=== PATIENT | female | born 2000 | race Caucasian/White ===

== ENCOUNTER 2024-06-11 22:42 | Observation (INO) | payer SELFPAY ==
[2024-06-11 22:56] VITALS: BP 128/76; PULSE 94; RESP 19; RESP 99; TEMP 36.8
[2024-06-11 22:57] VITALS: BP 128/76; PULSE 94
[2024-06-11 23:11] VITALS: BMI 31.3
[2024-06-11 23:15] VITALS: TEMP 36.8
== END 2024-06-12 00:53 | disposition home or self-care (01) ==
PROVIDERS: Admitting Provider Specialist; Visit Provider Specialist
DX: O47.1 False labor at or after 37 completed weeks of gestation (principal); Z3A.39 39 weeks gestation of pregnancy
CPT/HCPCS: 59025; 59899

== ENCOUNTER 2024-06-12 04:20 | Inpatient (IN) | payer MEDICAID, SELFPAY ==
[2024-06-12] VITALS (17 sets, daily range): BP systolic 92–158; BP diastolic 57–84; PULSE 63–101; RESP 15–17; TEMP 36.5–36.8; O2SAT 96–97; BMI 31.0
[2024-06-12] MEDS: RINGERS LACTATED 1000 ML 1,000 ML 125 ML IV ×2 (04:45→07:51)
[2024-06-12] MEDS: Ampicillin Inj 2,000 MG in SODIUM CHLORIDE 0.9% (POP) 100 ML 200 MG IV (04:47)
[2024-06-12 05:07] LABS: Basophils % (Auto) 0 % (0-2.5); Eosinophils % (Auto) 0 % (0-10); Hematocrit 37.6 % (36.0-46.0); Immature Granulocytes % (Auto) 0 % (0-0); Immature Granulocytes Auto 0.08 Thou/mm3 (0.00-0.00); Lymphocytes # (Auto) 1.9 Thou/mm3 (1.0-4.8); Lymphocytes % (Auto) 10 % (10-50); Mean Corpuscular HGB Conc 34.6 g/dl (31.0-37.0); Mean Corpuscular Hemoglobin 29.3 pg (25.0-35.0); Mean Corpuscular Volume 85 fL (80-100); Monocytes # (Auto) 0.8 Thou/mm3 (0.0-0.8); Monocytes % (Auto) 4 % (0-12); Neutrophils # (Auto) 16.7 Thou/mm3 (1.8-7.7); Neutrophils % (Auto) 86 % (37-80); Nucleated Red Blood Cell % 0 /100 WBC (0); Platelet Count 391 Thou/mm3 (140-440); RDW Standard Deviation 41.5 fL (36.4-46.3); Red Blood Count 4.43 Miln/mm3 (4.00-5.20); White Blood Count 19.5 Thou/mm3 (3.6-11.0)
--- NOTE | 2024-06-12 05:29 | PD.LDHP ---
Documentation for date of: 06/12/24 OB Labor/Induct. HPI History of Present Illness Chief complaint: Labor pains : 1 Para: 0 PENNY: 06/18/24 Gestational Age (weeks): 39 Gestational Age (days): 1 History of present illness: 23-year-old 1 para 0 with intrauterine at 39 weeks and 1 day presented to labor and delivery complaining of contractions and was noted to be 5 cm on admission. She progressed rapidly to fully dilated within an hour and delivered a viable female infant without complication. Positive GBS vaginal rectal colonization. Received ampicillin before delivery. History of Present Dating criteria: LMP confirmed by 1st trimester US Labs Maternal Blood Type: O Neg Review of Systems Cardiovascular Comments: Denies any chest pain or palpitations Respiratory Comments: Denies any shortness of breath or cough Gastrointestinal Comments: Denies any constipation or diarrhea Genitourinary Comments: Denies any dysuria or flank pain Past Medical History Past Medical History OTHER HISTORY: Positive Communicable Disease (Chlamydia) Surgical History OTHER SURGICAL HX: None Social History SUBSTANCE USE: marijuana Meds Home Medications and Allergies Home Medications ?Medication ?Instructions ?Recorded ?Confirmed ?Type metronidazole 500 mg tablet 500 mg PO Q12H 06/11/24 06/11/24 History vits no.130-ferrous fum 1 tab PO QDAY 06/11/24 06/11/24 History 27 mg iron-folic acid 800 mcg tablet ( Vitamin) Allergies Allergy/AdvReac Type Severity Reaction Status Date / Time No Known Allergies Allergy Verified 06/11/24 23:11 OB Exam Physical Exam Vital signs: Pulse BP 91 126/82 06/12/24 05:03 06/12/24 05:23 Routine Respiratory Exam Comments: Clear to auscultation Routine Cardiovascular Exam Comments: Regular rate and rhythm Routine Abdominal Exam Comments: Fundus firm 2 cm above the umbilicus Routine Exam Comments: Second-degree perineal laceration and left labial laceration status post repair Routine Extremities Exam Comments: Nontender or edema Routine Skin Exam Comments: No gross rashes or lesions Routine Neurological Exam Comments: No focal deficit OB Results Labs 06/12/24 04:38 Labs: Short CBC 06/12/24 Range/Units 04:38 WBC 19.5 H (3.6-11.0) Thou/mm3 Hgb 13.0 (12.0-16.0) g/dL Hct 37.6 (36.0-46.0) % Plt Count 391 (140-440) Thou/mm3 Impressions Impression: Post day #0 status post spontaneous vaginal delivery Presumptive chorioamnionitis Ampicillin and gentamicin
[2024-06-12] MEDS: MINERAL OIL 30 ML UDC TOP (05:33)
[2024-06-12] MEDS: OXYTOCIN in NS 20 units 20 UNIT/1,000 ML BAG 125 UNIT IV (05:36)
[2024-06-12] MEDS: LIDOCAINE HCL 1% 20 ML VIAL INFL (05:37)
[2024-06-12] MEDS: BENZO/LANO/ALOE (Dermoplast) 60 GM CAN 1 SPRAY TOP (05:38)
[2024-06-12] MEDS: fentaNYL CIT INJ 50 mCg/ML AMP 2ML 100 MCG IV (05:43)
[2024-06-12 05:46] LABS: Syphilis Nonreactive (Nonreactive)
--- NOTE | 2024-06-12 06:13 | PD.LDDELS ---
Data (Bill) Data : 1 Para: 0 Term: 0 : 0 : 0 Delivery Data (Bill) Labor Data ROM Date: 06/12/24 ROM Time: 05:06 Rupture Type: SROM Amniotic Fluid: Clear Delivery Data EDC: 06/18/24 EDC calculated by:: LMP/early US confirmation Labor Onset Stage 1 Date: 06/12/24 Labor Onset Stage 1 Time: 04:00 Labor Onset Stage 2 Date: 06/12/24 Labor Onset Stage 2 Time: 05:17 Delivery Date: 06/12/24 Delivery Time: 05:34 Gestational age (weeks): 39 Gestational age (days): 1 Placenta Delivery Date: 06/12/24 Placenta Delivery Time: 05:42 Delivered by: Tyrell Livingston Delivery nurse: Maranda Lerma Other staff at delivery: 2nd Nurse Other staff at delivery: Shirlene Mays Delivery Method Delivery: Vaginal Delivery Type: Spontaneous Presentation: Vertex Position: OA Anesthesia Type Primary Anesthesia: Local Placenta Placenta Delivery: Spontaneous Placenta Sent for Examination: No Cord Sample: Cord Blood Obtained Lacerations #1: Perineal: 2nd degree Labial: left Perineal repair Sutures used for repair: 3.0 Chromic EBL Estimated blood loss (ml): 200 Umbilical Cord Umbilical Vessels: 3 Additional Procedures None Complications Complications: None Data (Bill) Data Infant Gender: Female Weight Grams: 2860 1 Minute Total: 7 5 Minute Total: 9
--- NOTE | 2024-06-12 06:15 | PD.LDDS ---
DS: Providers Provider Date of admission: 06/12/24 04:33 Primary care physician: Physician No Primary/Family Admitting Provider: Tyrell Livingston MD Attending Provider on Admission: Tyrell Livingston MD Attending Provider on DC: Tyrell Livingston MD Discharging Provider: Tyrell Livingston MD DS: Diagnosis Problem List Completed Was Problem List Reviewed/Reconciled?: Yes Summary/Hosp Course Brief History: 23-year-old 1 para 0 with intrauterine at 39 weeks and 1 day presented to labor and delivery complaining of contractions and was noted to be 5 cm on admission. She progressed rapidly to fully dilated within an hour and delivered a viable female infant without complication. Positive GBS vaginal rectal colonization. Received ampicillin before delivery. Time Spent with Patient Time attestation: Total time spent providing and/or coordinating discharge services: Exam Vital Signs Pulse BP 82 126/61 06/12/24 06:05 06/12/24 06:05 Discharge Plan Prescriptions/Referrals Prescriptions/Med Rec: No Action metronidazole 500 mg tablet 500 mg PO Q12H Patient Comments: TAKE 1 TABLET BY MOUTH EVERY 12 HOURS FOR 7 DAYS Vitamin 27 mg iron- 800 mcg tablet 1 tab PO QDAY Referrals: No Primary/Family,Physician [Primary Care Provider] - Patient/Caregiver Discharge Instructions Print Language: Mongolian Planned Discharge Date 06/14/24
[2024-06-12] MEDS: IBUPROFEN TAB 400 MG TABLET 800 MG PO (07:21)
[2024-06-12] MEDS: metroNIDAZOLE 250 MG TABLET 500 MG PO ×2 (07:51→20:55)
[2024-06-12 08:14] LABS: Albumin, Serum 4.1 gm/dL (3.5-5.0); Anion Gap 17 (7-16); BUN/Creatinine Ratio 14 Ratio (12-20); Blood Urea Nitrogen 13 mg/dL (9-23); Calcium 9.4 mg/dL (8.3-10.6); Calcium (Corrected) 9.4 mg/dL (8.5-10.1); Chloride 107 mMol/L (98-107); Creatinine (Component) 0.9 mg/dL (0.6-1.3); Estimated Creatinine Clearance 102.5 mL/min (>60); Glucose 105 mg/dL (74-106); Osmolality,Calculated 277 (275-295); Phosphorous 2.2 mg/dL (2.4-5.1); Potassium 3.6 mMol/L (3.4-5.1); Sodium 139 mMol/L (136-145); eGFR > 60 See Note
[2024-06-12 08:23] LABS: Carbon Dioxide 14.8 mMol/L (20.0-31.0)
[2024-06-12 11:12] LABS: Basophils % (Auto) 0 % (0-2.5); Eosinophils % (Auto) 0 % (0-10); Hematocrit 32.7 % (36.0-46.0); Hemoglobin 11.2 g/dL (12.0-16.0); Immature Granulocytes % (Auto) 1 % (0-0); Immature Granulocytes Auto 0.16 Thou/mm3 (0.00-0.00); Lymphocytes # (Auto) 1.1 Thou/mm3 (1.0-4.8); Lymphocytes % (Auto) 4 % (10-50); Mean Corpuscular HGB Conc 34.3 g/dl (31.0-37.0); Mean Corpuscular Hemoglobin 29.1 pg (25.0-35.0); Mean Corpuscular Volume 85 fL (80-100); Monocytes # (Auto) 1.4 Thou/mm3 (0.0-0.8); Monocytes % (Auto) 6 % (0-12); Neutrophils # (Auto) 23.4 Thou/mm3 (1.8-7.7); Neutrophils % (Auto) 90 % (37-80); Nucleated Red Blood Cell % 0 /100 WBC (0); Platelet Count 320 Thou/mm3 (140-440); RDW Standard Deviation 42.6 fL (36.4-46.3); Red Blood Count 3.85 Miln/mm3 (4.00-5.20); White Blood Count 26.2 Thou/mm3 (3.6-11.0)
[2024-06-12] MEDS: Ampicillin Inj 2,000 MG in SODIUM CHLORIDE 0.9% (POP) 100 ML 100 MG IV ×3 (11:55→23:32)
[2024-06-12 19:38] LABS: Gentamicin, Random < 0.5 mcg/mL (4.0-10.0)
[2024-06-13 04:08] VITALS: BP 100/56; PULSE 67; RESP 16; TEMP 36.8; O2SAT 97
[2024-06-13] MEDS: Ampicillin Inj 2,000 MG in SODIUM CHLORIDE 0.9% (POP) 100 ML 100 MG IV (05:31)
--- NOTE | 2024-06-13 07:47 | ESDS_ITS ---
DS: Providers Provider Date of admission: 06/12/24 04:33 Primary care physician: Physician No Primary/Family Admitting Provider: Tyrell Livingston MD Attending Provider on Admission: Wilfredo Coronado MD Consults: 06/12/24 07:21 Referral Routine Comment: Attending Provider on DC: Sandra Avalos CNM Discharging Provider: Sandra Avalos CNM Anticipated date of discharge: 06/13/24 DS: Diagnosis Discharge Diagnosis (1) (normal spontaneous vaginal delivery): Status: Acute (2) Encounter for care of lactating mother: Status: Acute Problem List Completed Was Problem List Reviewed/Reconciled?: Yes Summary/Hosp Course Brief History: 23-year-old 1 para 0 with intrauterine at 39 weeks and 1 day presented to labor and delivery complaining of contractions and was noted to be 5 cm on admission. She progressed rapidly to fully dilated within an hour and delivered a viable female without complication. Positive GBS vaginal rectal colonization. Received ampicillin before delivery. 06/13/24: 06/13/24: day 2. Patient is stable and afebrile doing well. Uterus is nontender fundus firm minimal lochia. No complaints. Discharge instructions given. Patient to follow-up with Sandra Avalos CNM in 3 weeks . Peripartum Data Delivery Method: Normal Vaginal Delivery Episiotomy Description: None Laceration Description: yes and see Delivery Summary complications: none [place] 1: Gender: Female Disposition of : home Status at Discharge Cognitive/behavioral status at discharge: . Alert and oriented x 3 Functional status at discharge: independent ambulation Overall status at discharge: patient is progressing back to baseline Time Spent with Patient Time attestation: Total time spent providing and/or coordinating discharge services: Time spent: Greater than 30 minutes Exam Vital Signs Temp Pulse Resp BP Pulse Ox O2 Del Method 98.2 F 67 16 100/56 L 97 Room Air 06/13/24 04:08 06/13/24 04:08 06/13/24 04:08 06/13/24 04:08 06/13/24 04:08 06/13/24 04:08 Constitutional Constitutional: no acute distress Routine HEENT Exam Head: Present normocephalic and atraumatic Eye: Present EOMI, PERRL and normal accommodation ENT: Present mucous membranes moist Routine Neck Exam Neck: Present supple, full ROM and trachea midline Routine Respiratory Exam Respiratory: Present chest non-tender, lungs clear, normal breath sounds and no resp distress Routine Cardiovascular Exam Cardiovascular: Present RRR Routine Abdominal Exam Abdominal: Present soft and normoactive bowel sounds; Absent tenderness or distended Comments: Uterus nontender Fundus firm Routine Exam Patient deferred: external exam Routine Extremities Exam Extremities: Present full ROM Routine Back/Spine/Pelvis Exam Back/Spine: Present full ROM Routine Skin Exam Skin: Present intact, dry and warm Routine Neurological Exam Neurological: Present alert, oriented X3 and CN II-XII intact Routine Psychiatric Exam Psychiatric: Present normal affect and normal thought process Discharge Plan Plan Patient Disposition: HOME (Self Care) Patient condition on transfer: Stable Prescriptions/Referrals Prescriptions/Med Rec: New ibuprofen 800 mg tablet 800 mg PO Q6H MDD 4 PRN (Reason: pain) Qty: 90 0RF docusate sodium [Colace] 100 mg capsule 100 mg PO BID Qty: 60 0RF lanolin 50 % ointment 1 applic topical TID PRN (Reason: skin irritation) Qty: 15 0RF Continued metronidazole 500 mg tablet 500 mg PO Q12H Patient Comments: TAKE 1 TABLET BY MOUTH EVERY 12 HOURS FOR 7 DAYS Vitamin 27 mg iron- 800 mcg tablet 1 tab PO QDAY Referrals: No Primary/Family,Physician [Primary Care Provider] - Patient/Caregiver Discharge Instructions Meds to Beds: No Discharge Activity: activity as tolerated Other Discharge Activity Instructions:: Follow-up with Sandra Avalos CNM in 3 weeks Education Materials: After a Vaginal , After Delivery Concerns Print Language: Hungarian Stand Alone Forms: [facility] Award Info., Patient Portal Info Letter Discharge Order Discharge Orders: Discharge (Routine); Ordered 06/13/24 Ordered By: Sandra Avalos Planned Discharge Date 06/13/24
[2024-06-13] MEDS: metroNIDAZOLE 250 MG TABLET 500 MG PO (08:15)
[2024-06-13 08:20] VITALS: BP 115/66; PULSE 76; RESP 14; TEMP 36.7; O2SAT 97
== END 2024-06-13 13:45 | disposition home or self-care (01) | DRG 560 ==
LOC: S4SX 06:49 → S4NX 08:04
PROVIDERS: Admitting Provider Specialist; Visit Provider Obstetrics & Gynecology
DX: O99.824 Streptococcus B carrier state complicating childbirth (principal); Z37.0 Single live birth; Z3A.39 39 weeks gestation of pregnancy; O41.1230 Chorioamnionitis, third trimester, not applicable or unspecified; O70.1 Second degree perineal laceration during delivery
CPT/HCPCS: 36415; 80069; 80170; 85025; 85461; 86780; 86850; 86870; 86900; 86901; J0290; J1580; J2590; J2790; J3010; J3490; J7050; J7120; A9270